=== PATIENT | male | born 1985 | race Two or more races ===

== ENCOUNTER → 2017-01-09 | Outpatient (CLI) | payer BC ==
--- NOTE | 2017-01-09 15:21 | REP ---
Lumbar spine five views: There are no comparisons. The vertebral body heights, interspacing alignment are normal. The pedicles, facet articulations and sacroiliac articulations are unremarkable. There is no spondylolysis or spondylolisthesis. Impression: Negative lumbar spine. Signed by Regulo Covarrubias MD 01/09/2017 03:13 P
== END ==
LOC: M ADAMS 14:56
PROVIDERS: ATTEND Physician Assistant Medical
DX: M54.5 Low back pain (principal)

== ENCOUNTER 2020-01-20 23:52 | Emergency (ER) | payer BC ==
[2020-01-21] MEDS ORDERED: ceFAZolin 1GM VIAL (J0690 PER 500MG) ONE (01:04)
== END 2020-01-21 02:00 | disposition home or self-care (01) ==
LOC: M ED 23:52
DX: S56.522A Laceration of other extensor muscle, fascia and tendon at forearm level, left arm, initial encounter (principal); W31.2XXA Contact with powered woodworking and forming machines, initial encounter; Y92.9 Unspecified place or not applicable
CPT/HCPCS: 12002; 73110; 99284; J0690

== ENCOUNTER 2021-05-07 14:43 | Observation (INO) | payer BC ==
[~2021-05-07] VITALS: Ht 172.7 cm; Wt 74.5 kg
[2021-05-07] MEDS: COMBIVENT RESPIMAT 100-20MCG INHALER 4GM INH SCH ×3 (15:39→15:52)
[2021-05-07 16:04] LABS: HEMATOCRIT 42.6 % (42.0-52.0); HEMOGLOBIN 14.6 g/dl (13.5-17.5); MEAN CORPUSCULAR HEMOGLOBIN 31.3 pg (27.0-33.0); MEAN CORPUSCULAR HGB CONC 34.3 g/dl (32.0-36.5); MEAN CORPUSCULAR VOLUME 91.2 fl (80.0-96.0); PLATELET COUNT, AUTOMATED 218 10^3/uL (150-450); RED BLOOD COUNT 4.67 10^6/uL (4.30-6.10); WHITE BLOOD COUNT 5.2 10^3/uL (4.0-10.0)
[2021-05-07 16:19] LABS: INR 0.93; PROTHROMBIN TIME 12.8 SECONDS (12.7-14.5)
[2021-05-07 16:20] LABS: PARTIAL THROMBOPLASTIN TIME 33.1 SECONDS (25.9-37.0)
[2021-05-07 16:22] LABS: D-DIMER QUANT 1872.59 ng/ml (<500)
[2021-05-07 16:36] LABS: ATYPICAL LYMPH 3 % (0-5); LYMPHOCYTES 17 % (16-44); MONOCYTES 13 % (0-5); NEUTROPHILS 66 % (28-66); PLATELET ESTIMATE NORMAL (NORMAL)
[2021-05-07 16:44] LABS: ABG BASE EXCESS 0.6 (-2.0-2.0); ABG HCO3 25.4 MEQ/L (22.0-26.0); ABG O2 SATURATION 97.3 % (95.0-99.0); ABG PARTIAL PRESSURE CO2 41.2 mmHg (35.0-45.0); ABG PARTIAL PRESSURE O2 91.9 mmHg (75.0-100.0); ABG TOTAL CO2 26.6 MEQ/L (22.0-29.0); ABG pH (ARTERIAL) 7.407 UNITS (7.350-7.450)
[2021-05-07 16:45] LABS: ALBUMIN 2.5 GM/DL (3.2-5.2); ALT/SGPT 71 U/L (12-78); BILIRUBIN,TOTAL 0.5 MG/DL (0.2-1.0); BLOOD UREA NITROGEN 11 MG/DL (7-18); CALCIUM LEVEL 8.4 MG/DL (8.5-10.1); CARBON DIOXIDE LEVEL 27 MEQ/L (21-32); CHLORIDE LEVEL 101 MEQ/L (98-107); CREATININE FOR GFR 0.73 MG/DL (0.70-1.30); FERRITIN 3070 NG/ML (26-388); GLOMERULAR FILTRATION RATE > 60.0 (>60); GLUCOSE, FASTING 104 MG/DL (70-100); LDH LACTATE DEHYDROGENASE 537 U/L (87-241); MAGNESIUM LEVEL 2.3 MG/DL (1.8-2.4); SODIUM LEVEL 137 MEQ/L (136-145); TOTAL PROTEIN 6.9 GM/DL (6.4-8.2)
[2021-05-07] MEDS ORDERED: ISOVUE-370 76% 100ML VIAL As Ordered ONE (16:56)
[2021-05-07] MEDS ORDERED: ACETAMINOPHEN TAB 650MG DOSE (2X325MG) PO PRN (18:05)
[2021-05-07] MEDS ORDERED: ONDANSETRON 4MG/2ML VIAL IV PRN (18:05)
[2021-05-07] MEDS ORDERED: BENZONATATE 100MG CAPSULE PO PRN (19:10)
[2021-05-07 21:33] LABS: CK-MB VALUE MASS < 1.0 NG/ML (<3.6); CPK CREATINE PHOSPHOKINASE 23 U/L (39-308)
[2021-05-08] VITALS (10 sets, daily range): BP systolic 123–142; BP diastolic 77–91; O2SAT 94–97
[2021-05-08] MEDS ORDERED: REMDESIVIR 200 MG in NS 250 ML IV ONE (02:30)
[2021-05-08] MEDS: BARICITINIB 2MG TABLET (OLUMIANT) FOR EUA PO SCH ×2 (03:08→09:12)
[2021-05-08 03:41] LABS: APPEARANCE, URINE CLEAR (CLEAR); BACTERIA, URINE AUTO NEGATIVE (NEGATIVE); BILIRUBIN, URINE AUTO NEGATIVE (NEGATIVE); BLOOD, URINE BLOOD NEGATIVE (NEGATIVE); COLOR, URINE YELLOW (YELLOW); GLUCOSE, URINE (UA) AUTO 1+ mg/dL (NEGATIVE); KETONE, URINE AUTO TRACE mg/dL (NEGATIVE); LEUKOCYTE ESTERASE, URINE AUTO NEGATIVE (NEGATIVE); NITRITE, URINE AUTO NEGATIVE (NEGATIVE); PROTEIN, URINE AUTO 1+ mg/dL (NEGATIVE); RBC, URINE AUTO 0 /HPF (0-3); SQUAMOUS EPITHELIAL CELL UR AU 0 /HPF (0-6); WBC, URINE AUTO 0 /HPF (0-3)
[2021-05-08] MEDS ORDERED: SODIUM CHLORIDE 0.9% INJ 10 ML SYR IV ONE (04:30)
[2021-05-08 07:35] LABS: HEMATOCRIT 42.6 % (42.0-52.0); HEMOGLOBIN 14.6 g/dl (13.5-17.5); MEAN CORPUSCULAR HGB CONC 34.3 g/dl (32.0-36.5); MEAN CORPUSCULAR VOLUME 90.4 fl (80.0-96.0); PLATELET COUNT, AUTOMATED 241 10^3/uL (150-450); RED BLOOD COUNT 4.71 10^6/uL (4.30-6.10); WHITE BLOOD COUNT 3.6 10^3/uL (4.0-10.0)
[2021-05-08 08:08] LABS: BLOOD UREA NITROGEN 9 MG/DL (7-18); CALCIUM LEVEL 8.5 MG/DL (8.5-10.1); CARBON DIOXIDE LEVEL 29 MEQ/L (21-32); CHLORIDE LEVEL 102 MEQ/L (98-107); CREATININE FOR GFR 0.69 MG/DL (0.70-1.30); GLOMERULAR FILTRATION RATE > 60.0 (>60); GLUCOSE, FASTING 165 MG/DL (70-100); MAGNESIUM LEVEL 2.5 MG/DL (1.8-2.4); POTASSIUM SERUM 4.3 MEQ/L (3.5-5.1); SODIUM LEVEL 138 MEQ/L (136-145)
[2021-05-08] MEDS ORDERED: ASPIRIN 81MG ENTERIC TABLET PO SCH (09:00)
[2021-05-08] MEDS ORDERED: ENOXAPARIN 40MG/0.4ML SYRINGE (J1650 PER 10MG) SC SCH (09:00)
[2021-05-08 09:03] LABS: ATYPICAL LYMPH 4 % (0-5); LYMPHOCYTES 22 % (16-44); METAMYELOCYTES 1 % (0-0); MONOCYTES 19 % (0-5); NEUTROPHILS 52 % (28-66); PLATELET ESTIMATE NORMAL (NORMAL)
[2021-05-08] MEDS: dexameTHASONE 4 MG/ML 1ML VIAL (J1100 PER 1MG) IV SCH ×2 (09:11→09:41)
[2021-05-08] MEDS ORDERED: REMDESIVIR 100 MG in NS 250 ML IV SCH (23:00)
[2021-05-09] VITALS (7 sets, daily range): BP systolic 127–129; BP diastolic 68–88; O2SAT 89–95
[2021-05-09] MEDS ORDERED: SODIUM CHLORIDE 0.9% INJ 10 ML SYR IV SCH
[2021-05-09 06:28] LABS: HEMATOCRIT 40.7 % (42.0-52.0); HEMOGLOBIN 13.7 g/dl (13.5-17.5); MEAN CORPUSCULAR HEMOGLOBIN 31.3 pg (27.0-33.0); MEAN CORPUSCULAR HGB CONC 33.7 g/dl (32.0-36.5); MEAN CORPUSCULAR VOLUME 92.9 fl (80.0-96.0); PLATELET COUNT, AUTOMATED 341 10^3/uL (150-450); RED BLOOD COUNT 4.38 10^6/uL (4.30-6.10); WHITE BLOOD COUNT 9.7 10^3/uL (4.0-10.0)
[2021-05-09 06:42] LABS: INR 0.97; PARTIAL THROMBOPLASTIN TIME 26.9 SECONDS (25.9-37.0); PROTHROMBIN TIME 13.3 SECONDS (12.7-14.5)
[2021-05-09 07:01] LABS: ALBUMIN 2.3 GM/DL (3.2-5.2); ALT/SGPT 94 U/L (12-78); BILIRUBIN,DIRECT 0.2 MG/DL (0.0-0.2); BILIRUBIN,TOTAL 0.4 MG/DL (0.2-1.0); BLOOD UREA NITROGEN 14 MG/DL (7-18); CALCIUM LEVEL 8.8 MG/DL (8.5-10.1); CARBON DIOXIDE LEVEL 30 MEQ/L (21-32); CHLORIDE LEVEL 103 MEQ/L (98-107); CREATININE FOR GFR 0.67 MG/DL (0.70-1.30); FERRITIN 1951 NG/ML (26-388); GLOMERULAR FILTRATION RATE > 60.0 (>60); GLUCOSE, FASTING 138 MG/DL (70-100); LDH LACTATE DEHYDROGENASE 328 U/L (87-241); MAGNESIUM LEVEL 2.4 MG/DL (1.8-2.4); NT-PRO BNP 322 PG/ML (<125); SODIUM LEVEL 139 MEQ/L (136-145); TOTAL PROTEIN 6.8 GM/DL (6.4-8.2)
[2021-05-09 07:37] LABS: ATYPICAL LYMPH 3 % (0-5); LYMPHOCYTES 21 % (16-44); METAMYELOCYTES 1 % (0-0); MONOCYTES 6 % (0-5); NEUTROPHILS 67 % (28-66); PLATELET ESTIMATE NORMAL (NORMAL)
[2021-05-09] MEDS ORDERED: BENZ-18 PO ×2 (09:34→10:35)
[2021-05-09] MEDS ORDERED: ASPI-551 PO ×2 (09:34→10:35)
[2021-05-09] MEDS ORDERED: PROAAER10 INH (09:35)
[2021-05-09] MEDS ORDERED: ALBU8.5H INH (10:33)
[2021-05-10 12:07] LABS: BODY FLUID CULTURE Not indicated. (.); LEGIONELLA ANTIGEN URINE Negative (Negative); ORGANISM ID Not indicated. (.); SPECIMEN SOURCE Urine (.); URINE STREP PNEUMONIAE ANTIGEN Negative (Negative)
[2021-05-10 16:08] LABS: MYCOPLASMA PNEUMONIAE IgG 379 U/mL (0-99); MYCOPLASMA PNEUMONIAE IgM 890 U/mL (0-769)
== END 2021-05-09 12:15 | disposition home or self-care (01) ==
LOC: EDBD 14:43 → M ED 14:43 → M ED INP 14:44 → M 4MAIN 05-08 02:03
PROVIDERS: ADMIT Internal Medicine; ATTEND Internal Medicine
DX: U07.1 COVID-19 (principal); J12.82 Pneumonia due to coronavirus disease 2019
CPT/HCPCS: 36415; 36600; 71045; 71275; 80048; 80053; 80076; 81001; 82550; 82553; 82728; 82803; 83605; 83615; 83735; 83880; 84145; 84484; 85025; 85379; 85384; 85610; 85730; 86140; 86738; 87040; 87449; 87798; 87899; 93005; 94640; 96365; 96366; 96372; 99284; J1100; J1650; Q9967